=== PATIENT | female | born 1990 | race Caucasian/White ===

== ENCOUNTER 2018-05-19 12:57 | Emergency (ER) | payer OTHER ==
[2018-05-19 13:53] LABS: URINE PH (Dip) POC 8.5 (5.0-8.5)
[2018-05-19 13:53] LABS: URINE BLOOD (Dip) POC Negative (NEGATIVE); URINE GLUCOSE (Dip) POC Negative (NEGATIVE); URINE KETONES (Dip) POC Negative (NEGATIVE); URINE LEUKOCYTE EST (Dip) POC Negative (NEGATIVE); URINE NITRITE (Dip) POC Negative (NEGATIVE); URINE TOTAL PROTEIN POC 1+ (NEGATIVE)
== END 2018-05-19 15:53 | disposition home or self-care (01) ==
LOC: FTE 12:57
DX: S39.92XA Unspecified injury of lower back, initial encounter (principal); M51.44 Schmorl's nodes, thoracic region; M51.46 Schmorl's nodes, lumbar region; W19.XXXA Unspecified fall, initial encounter; Y92.9 Unspecified place or not applicable
CPT/HCPCS: 72072; 72100; 81003; 81025; 99283-25